=== PATIENT | male | born 1945 | race Two or more races ===

== ENCOUNTER 2019-04-08 10:20 | Outpatient (CLI) | payer OTHER ==
[2019-04-08] MEDS ORDERED: VASOTEC20 M1 PO (12:01)
[2019-04-08] MEDS ORDERED: NORVASC10 MG PO (12:01)
[2019-04-08] MEDS ORDERED: TAMS0.4C PO (12:02)
== END 2019-04-08 10:25 | disposition home or self-care (01) ==
LOC: RAD 10:20
DX: M54.5 Low back pain (principal); M54.17 Radiculopathy, lumbosacral region; M47.816 Spondylosis without myelopathy or radiculopathy, lumbar region

== ENCOUNTER 2019-04-10 08:05 | Day surgery (SDC) | payer OTHER ==
[~2019-04-10 08:05] MED LIST: NORVASC10 MG PO; TAMS0.4C PO; VASOTEC20 M1 PO
== END 2019-04-10 11:15 | disposition home or self-care (01) ==
LOC: CIR.AMB 08:05
DX: M47.816 Spondylosis without myelopathy or radiculopathy, lumbar region (principal)

== ENCOUNTER 2020-10-26 11:04 | Outpatient (CLI) | payer OTHER | END 2020-10-26 18:00 | disposition home or self-care (01) | LOC: PPH VACUNA 11:04 | PROVIDERS: ATTEND Emergency Medicine Pediatric Emergency Medicine | DX: Z23 Encounter for immunization (principal) ==

== ENCOUNTER 2021-08-30 13:03 | Outpatient (CLI) | payer OTHER | END 2021-08-30 14:59 | disposition home or self-care (01) | LOC: LAB 13:03 | PROVIDERS: ATTEND Urology | DX: R97.20 Elevated prostate specific antigen [PSA] (principal) ==

== ENCOUNTER 2021-09-06 07:21 | Outpatient (CLI) | payer OTHER | END 2021-09-06 07:32 | disposition home or self-care (01) | LOC: SONOGRAMA 07:21 | PROVIDERS: ATTEND Urology | DX: C61 Malignant neoplasm of prostate (principal); D29.1 Benign neoplasm of prostate; R97.20 Elevated prostate specific antigen [PSA] ==